=== PATIENT | male | born 1960 | race Caucasian/White ===

== ENCOUNTER 2017-04-17 07:41 | Day surgery (SDC) | payer OTHER ==
[~2017-04-17] VITALS: Ht 165.1 cm; Wt 55.1 kg
[~2017-04-17 07:41] MED LIST: ONDA4TAB35 PO
[2017-04-17 08:50] VITALS: Ht 165.1 cm; Wt 55.1 kg
[2017-04-17 08:51] VITALS: BP 106/61; PULSE 55; RESP 16
[2017-04-17] MEDS ORDERED: LIDOCAINE 1% (MPF) 5 ML VIAL ONE (09:54)
--- NOTE | 2017-04-17 10:19 | RADRPT ---
PROCEDURE: XR Chest. CLINICAL INDICATION: Status post thoracentesis TECHNIQUE: Single portable view of the chest was obtained COMPARISON: US CHEST 04/17/2017; CR CHEST 06/15/2014 FINDINGS: There is no evidence of pneumothorax status post thoracentesis. There is mild cardiomegaly. There is a right chest wall port in place. There are mild bibasilar atel ectatic changes. RPTAT:AA IMPRESSION: No pneumothorax status post thoracentesis. .Carson Hsu MD, MD Date Time Electronically viewed and signed by .Carson Hsu MD, MD on 04/17/2017 10:18 .S/
[2017-04-17 10:31] VITALS: BP 111/69; PULSE 58; RESP 20
[2017-04-17 11:00] VITALS: BP 112/53; PULSE 58; RESP 20
--- NOTE | 2017-04-17 11:55 | RADRPT ---
PROCEDURE: US guided right thoracentesis. CLINICAL INDICATION: Shortness of breath. Right pleural effusion. TECHNIQUE: Prior to the procedure, informed consent was obtained. The risks, benefits, and alternatives were e xplained to the patient or the patient's family, including but not limited to bleeding, infection, p ain, visceral or vascular damage, shock, pneumothorax, chest tube placement, air embolism, and . The patient or the patient's family understood the risks and the alternatives and wished to proce ed with the study. Informed written consent was obtained. A procedural pause was performed. The patient's name, date of , and procedure to be performed were verified. Ultrasound of the right hemithorax was performed in the axial and sagittal planes. A right pleural e ffusion is noted. Utilizing ultrasound guidance, optimal location for entry to the pleural cavity wa s ascertained. The overlying skin was prepped and draped in the usual sterile fashion. Approximate ly 10 ml of 1% Xylocaine was injected locally for pain control. Using ultrasound guidance, a 5-Fren Yueh catheter was introduced into the right pleural space without difficulty. Fluid was aspirated . COMPARISON: None. FINDINGS: Initial ultrasound demonstrates fluid in the right pleural space. Approximately 0.300liters of sero us fluid was aspirated and sent to the laboratory. IMPRESSION: 1. Satisfactory ultrasound-guided right thoracentesis. RPTAT: QQ .Aj Garcia MD, Date Time Electronically viewed and signed by .Aj Garcia MD, on 04/17/2017 11:55 .R/
[2017-04-17 12:18] VITALS: BP 126/73; PULSE 57; RESP 20
== END 2017-04-17 12:38 | disposition home or self-care (01) ==
LOC: SDS 07:41
PROVIDERS: ATTEND Internal Medicine Hematology & Oncology
DX: J90 Pleural effusion, not elsewhere classified (principal); C64.9 Malignant neoplasm of unspecified kidney, except renal pelvis
CPT/HCPCS: 32555; 71010; 76942; 88104; 88305; Z7610

== ENCOUNTER 2017-06-06 10:57 | Day surgery (SDC) | END 2017-06-06 13:34 | disposition home or self-care (01) ==

== ENCOUNTER 2017-06-12 08:57 | Emergency (ER) | END 2017-06-12 19:07 | disposition home or self-care (01) ==

== ENCOUNTER 2017-06-13 09:20 | Emergency (ER) | END 2017-06-13 17:18 | disposition home or self-care (01) ==

== ENCOUNTER 2017-07-07 21:15 | Inpatient (IN) | END 2017-07-25 02:00 | disposition EXP | DRG 391 ==